=== PATIENT | male | born 1985 | race African-American/Black ===

== ENCOUNTER 2020-08-04 17:14 | Emergency (ER) | payer BC ==
[2020-08-04 17:19] VITALS: BP 115/68
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
--- NOTE | 2020-08-04 18:47 | PSYCHOLOGICAL NOTE ---
Psych Note - Psych Note Date seen by psych provider: 08/04/20 Time seen by psych provider: 18:31 Psych Note: Reason for Consult: Medication refill Consent Permissions: None provided Patient arrived to [facility] ED via POV with concerns for medication refills. Patient has an outpatient mental health provider with [facility]. he states he filled some of his prescriptions but has not been able to get his zyprexa because of the cost. He reports he has no money or insurance. Patient reports he was hoping the hospital would have medication to provide. Patient denies suicidal and homicidal ideation. He reports he is prescribed zyprexa because is has auditory hallucinations. He denies they are command hallucination and does not cause significant distress. He reports the prescription is electronic and was sent to [facility]. Patient is alert and orientated to person, place, time and circumstance. Mood is euthymic with congruent affect. Patient denies suicidal and homicidal ideation. While patient discloses auditory hallucinations, patient is not demonstrating any behaviors of responding to internal stimulation currently. Patient maintains good eye contact, has normal conversational speech and has organized linear and logical thought processes. Intellectual abilities appear to be within the average range. Attention and concentration is good. Insight, judgment, impulse control is currently good. Clinical Presentation: Financial difficulties Reports auditory hallucinations; currently not demonstrating behaviors of responding to internal stimuli IVC Criteria per [place] GS 122C Dangerous to others Within the relevant past the individual No has inflicted or attempted to inflict or threatened to inflict serious bodily harm on another AND No that there is a reasonable probability that this conduct will be repeated. OR No has acted in such a way as to create a substantial risk of serious bodily harm to another AND No that there is a reasonable probability that this conduct will be repeated. OR No has engaged in extreme destruction of property AND NO that there is a reasonable probability that this conduct will be repeated. Previous episodes of dangerousness to others, when applicable, may be considered when determining reasonable probability of future dangerous conduct. Clear, cogent, and convincing evidence that an individual has committed a homicide in the relevant past is prima facie evidence of dangerousness to others. Dangerous to self Within the relevant past the individual has done any of the following: acted in such a way as to show ALL of the following: No The individual would be unable without care, supervision, and the continued assistance of others not otherwise available, to exercise self- control, judgment, and discretion in the conduct of the individual's daily responsibilities and social relations or to satisfy the individual's need for nourishment, personal or medical care, longterm, or self-protection and safety. AND No There is a reasonable probability of the individual suffering serious physical debilitation within the near future unless adequate treatment is given. A showing of behavior that is grossly irrational, of actions that the individual is unable to control, of behavior that is grossly inappropriate to the situation, or of other evidence of severely impaired insight and judgment shall create a prima facie inference that the individual is unable to care for himself or herself. OR No has attempted suicide or threatened suicide AND No that there is a reasonable probability of suicide unless adequate treatment is given OR No has mutilated himself or herself or attempted to mutilate himself or herself AND No that there is a reasonable probability of serious self-mutilation unless adequate treatment is given. NOTE: Previous episodes of dangerousness to self, when applicable, may be considered when determining reasonable probability of physical debilitation, suicide, or self-mutilation. Impression\plan: Patient is cleared from acute psychiatric services. Patient arrived to [facility] ED in the hope that he could receive physical medication in place of a prescription as he is currently unable to fill his Zyprexa. Patient has an outpatient mental health provider with [facility]. The prescription was electronic to reliable. Patient reports auditory hallucinations however denies they are command hallucinations and denies they are causing extreme distress. Discussed multiple options due to patient's current status of having reportedly no insurance or money. [employer] information was provided. Patient was recommended to contact his outpatient mental health provider, [facility], tomorrow to request zyprexa prescription be rerouted to [facility] where he can receive Zyprexa for $9 (as noted on [facility]). Dr. Corona was consulted to care management of this patient; attending physicians in agreement with recommendations and disposition. Case management: Patient was provided local resource list of area providers including mobile crisis contact information and [employer] phone number.
== END 2020-08-04 18:34 | disposition home or self-care (01) ==
LOC: ER 17:14
DX: Z76.0 Encounter for issue of repeat prescription (principal); R44.0 Auditory hallucinations
CPT/HCPCS: 99284

== ENCOUNTER 2020-11-11 12:30 | Emergency (ER) | payer SELFPAY ==
--- NOTE | 2020-11-11 13:54 | ER Document Report ---
ED General - General Chief Complaint: Other Stated Complaint: POSSIBLE RAPID HEART RATE Time Seen by Provider: 11/11/20 13:39 Notes: CHIEF COMPLAINT: Medical evaluation HPI: 35-year-old male who reports that he is otherwise healthy sent in for medical evaluation by a plasma center who stated that the patient had been tachycardic 3 times in July and August of last year and they wanted to make sure that he did not have an underlying medical condition before allowing him to give plasma again. He states that they gave him a form that needed to be signed and told him he needed to come to the emergency department not a primary care provider to have this evaluated. Patient has no complaints today. Patient believes that he was tachycardic then because he was chain smoking at the time. He denies any other drug use. Denies any other medical issues. ROS: See HPI - all other systems were reviewed and are otherwise negative Constitutional: no fever Eyes: no drainage, no blurred vision ENT: no runny nose, no sore throat Cardiovascular: no chest pain Resp: no SOB, no cough GI: no vomiting, no diarrhea, no abdominal pain : no dysuria Integumentary: no rash Allergy: no hives Musculoskeletal: no extremity pain or swelling Neurological: no numbness/tingling, no weakness MEDICATIONS: I agree with the patient medications as charted by the RN. ALLERGIES: I agree with the allergies as charted by the RN. PAST MEDICAL HISTORY/PAST SURGICAL HISTORY: Reviewed and agree as charted by RN. SOCIAL HISTORY: Reviewed and agree as charted by RN. FAMILY HISTORY: No significant familial comorbid conditions directly related to patient complaint EXAM: Reviewed vital signs as charted by RN. CONSTITUTIONAL: Alert and oriented and responds appropriately to questions. Well-appearing; well-nourished HEAD: Normocephalic; atraumatic EYES: PERRL; Conjunctivae clear, sclerae non-icteric ENT: normal nose; no rhinorrhea; moist mucous membranes; pharynx without lesions noted, no uvula edema or deviation, no tonsillar hypertrophy, phonation normal NECK: Supple without meningismus; non-tender; no cervical lymphadenopathy, no masses CARD: RRR; no murmurs, no clicks, no rubs, no gallops; symmetric distal pulses RESP: Normal chest excursion without splinting or tachypnea; breath sounds clear and equal bilaterally; no wheezes, no rhonchi, no rales, pulse oximetry 99% on room air not hypoxic ABD/GI: Normal bowel sounds; non-distended; soft, non-tender, no rebound, no guarding; no palpable organomegaly or masses. BACK: The back appears normal and is non-tender to palpation, there is no CVA tenderness EXT: Normal ROM in all joints; non-tender to palpation; no cyanosis, no effusions, no edema SKIN: Normal color for age and race; warm; dry; good turgor; no acute lesions noted NEURO: Moves all extremities equally; Motor and sensory function intact PSYCH: The patient's mood and manner are appropriate. Grooming and personal hygiene are appropriate. MDM: 35-year-old male sent over by a plasma center for evaluation of tachycardia that occurred 2 and 3 months ago. He believes it was because he was chain smoking. He reports no underlying medical issues. I will obtain baseline screening labs including TSH CBC CMP. Patient should have any other further work-up done by a primary care provider. He is aware of this. We will work today to ensure that patient has no emergent condition. EKG sinus rhythm with a ventricular rate of 71 OR 188 QT 372 QTC 405. Possible left ventricular hypertrophy. There do appear to be some repolarization abnormalities, abnormal EKG interpreted by emergency department physician TRAVEL OUTSIDE OF THE [place] IN LAST 30 DAYS: No - Related Data Allergies/Adverse Reactions: SSRI Allergy (Uncoded 11/11/20 13:26) Past Medical History - Social History Smoking Status: Current Every Day Smoker Family History: Reviewed & Not Pertinent Psychiatric Medical History: Reports: Hx Bipolar Disorder, Hx Schizophrenia - Immunizations Hx Diphtheria, Pertussis, Tetanus Vaccination: Yes - unknown Physical Exam - Vital signs Vitals: Temp Pulse Resp BP Pulse Ox 98.3 F 80 16 122/72 99 11/11/20 12:51 11/11/20 12:51 11/11/20 12:51 11/11/20 12:51 11/11/20 12:51 Course - Re-evaluation Re-evalutation: 11/11/20 15:20 Labs do not show any acute abnormalities. Patient will be medically cleared to follow-up with a primary care provider for further evaluation and management as needed he is not tachycardic here. Low suspicion for pericarditis he has no shortness of breath no chest discomfort, troponin negative - Vital Signs Vital signs: Temp Pulse Resp BP Pulse Ox 98.3 F 80 15 122/72 100 11/11/20 12:51 11/11/20 12:51 11/11/20 13:21 11/11/20 12:51 11/11/20 13:21 - Laboratory Results Result Diagrams: 11/11/20 14:03 11/11/20 14:03 Laboratory Results Interpreted: 11/11/20 11/11/20 14:03 14:03 MCH 26.9 L RDW 14.9 H Carbon Dioxide 35 H Anion Gap 2 L Creatinine 1.30 H Critical Laboratory Results Reviewed: No Critical Results - Radiology Results Critical Radiology Results Reviewed: No Critical Results Discharge - Discharge Clinical Impression: Encounter for medical screening examination, Tachycardia Condition: Stable Disposition: HOME, SELF-CARE Additional Instructions: Your lab work did not show any acute abnormalities today. Follow-up with a primary care provider in clinic for further evaluation of any episodes of tachycardia. If you have chest pain or shortness of breath return to the emergency department for reevaluation. There were no emergent abnormalities noted with your labs today Referrals: KIRA NELSON MD [ACTIVE STAFF] - Follow up as needed
[2020-11-11 14:27] LABS: ABSOLUTE BASOPHILS # (AUTO) 0.1 10^3/uL (0.0-0.2); ABSOLUTE EOSINOPHILS # (AUTO) 0.1 10^3/uL (0.0-0.6); ABSOLUTE MONOCYTES (AUTO) 0.4 10^3/uL (0.1-1.4); ABSOLUTE NEUT (AUTO) 1.9 10^3/uL (1.7-8.2); BASOPHILS % (AUTO) 1.4 % (0-2); EOSINOPHILS % (AUTO) 3.1 % (0-6); HEMATOCRIT 42.3 % (37.9-51.0); HEMOGLOBIN 14.2 g/dL (13.5-17.0); LYMPHOCYTES % (AUTO) 43.6 % (13-45); MEAN CORPUSCULAR HEMOGLOBIN 26.9 pg (27.0-33.4); MEAN CORPUSCULAR HGB CONC 33.5 g/dL (32.0-36.0); MEAN CORPUSCULAR VOLUME 80 fl (80-97); MONOCYTES % (AUTO) 8.5 % (3-13); PLATELET COUNT 307 10^3/uL (150-450); RED BLOOD COUNT 5.27 10^6/uL (4.35-5.55); RED CELL DISTRIBUTION WIDTH 14.9 % (11.5-14.0); SEGMENTED NEUTROPHILS % (AUTO) 43.4 % (42-78); TOTAL CELLS COUNTED % (AUTO) 100 %; WHITE BLOOD COUNT 4.5 10^3/uL (4.0-10.5)
[2020-11-11 14:43] LABS: ALBUMIN 3.7 g/dL (3.5-5.0); ALKALINE PHOSPHATASE 71 U/L (38-126); ASPARTATE AMINO TRANSFERASE 20 U/L (17-59); BILIRUBIN,DIRECT 0.2 mg/dL (0.0-0.4); BILIRUBIN,TOTAL 0.4 mg/dL (0.2-1.3); BLOOD UREA NITROGEN 11 mg/dL (7-20); CHLORIDE 103 mmol/L (98-107); GLUCOSE 81 mg/dL (75-110); POTASSIUM 4.6 mmol/L (3.6-5.0); TOTAL PROTEIN 6.6 g/dL (6.3-8.2)
[2020-11-11 14:48] LABS: CARBON DIOXIDE 35 mmol/L (22-30)
[2020-11-11 14:50] LABS: ANION GAP 2 (5-19)
[2020-11-11 15:21] VITALS: BP 112/79
--- NOTE | 2020-11-11 20:05 | EKG REPORT ---
SEVERITY:- ABNORMAL ECG - SINUS RHYTHM PROBABLE LEFT ATRIAL ABNORMALITY LEFT VENTRICULAR HYPERTROPHY ST ELEVATION SUGGESTS PERICARDITIS VERSUS EARLY REPOLARISATION CHANGES: CORELATE CLIICALLY : Confirmed by: Janie Villalobos MD 11-Nov-2020 20:04:14
== END 2020-11-11 16:02 | disposition home or self-care (01) ==
LOC: ER 12:30
DX: Z00.01 Encounter for general adult medical examination with abnormal findings (principal); R00.0 Tachycardia, unspecified
CPT/HCPCS: 36415; 80053; 84443; 84484; 85025; 93005; 93010; 99284